=== PATIENT | male | born 2000 | race Caucasian/White ===

== ENCOUNTER 2023-09-20 08:06 | Outpatient (CLI) | payer OTHER | END 2023-09-20 08:07 | disposition home or self-care (01) | LOC: SCSMRI 08:06 | PROVIDERS: ATTEND Family Medicine | DX: R41.0 Disorientation, unspecified (principal); R29.90 Unspecified symptoms and signs involving the nervous system | CPT/HCPCS: 70553 ==

== ENCOUNTER 2023-09-25 13:08 | Outpatient (CLI) | payer OTHER | END 2023-09-25 13:09 | disposition home or self-care (01) | LOC: EEG 13:08 | PROVIDERS: ATTEND Family Medicine | DX: R29.90 Unspecified symptoms and signs involving the nervous system (principal) | CPT/HCPCS: 95822 ==